=== PATIENT | female | born 1945 | race Caucasian/White ===

== ENCOUNTER → 2023-08-22 07:11 | Outpatient (REF) | payer MEDICARE, BC, SELFPAY | LOC: DHCBS MAIN 07:11 | PROVIDERS: ATTENDING PHYSICIAN Internal Medicine Cardiovascular Disease; FAMILY PHYSICIAN Family Medicine | DX: I48.0 Paroxysmal atrial fibrillation (principal); I34.0 Nonrheumatic mitral (valve) insufficiency | CPT/HCPCS: 93306 ==

== ENCOUNTER → 2023-08-22 08:39 | Outpatient (REF) | payer MEDICARE, SELFPAY ==
[2023-08-22 09:35] LABS: % Basophils 0.4 % (0-2); % Immature Granulocytes 0.4 % (0-0.5); % Lymphocytes 13.9 % (20.5-51.1); % Monocytes 6.1 % (1.7-9.3); % Neutrophils 78.2 % (42.2-75.2); Absolute Eosinophils 0.1 10^3/uL (0-0.7); Absolute Lymphocytes 1.2 10^3/uL (1.2-3.4); Absolute Monocytes 0.5 10^3/uL (0.1-0.6); Absolute Neutrophils 6.6 10^3/uL (1.4-6.5); Hemoglobin 14.8 g/dL (12.0-16.0); Mean Corp Hgb Conc. 34.4 g/dL (33.0-37.0); Mean Corpuscular Hgb 33.5 pg (27.0-31.0); Mean Corpuscular Volume 97.3 fL (81.0-99.0); Mean Platelet Volume 10.2 fL (7.4-10.4); Nucleated Red Blood Cells % 0 %; Platelet Count 239 10^3/uL (130-400); Red Blood Cell Count 4.42 10^6/uL (4.20-5.40); Red Cell Dist. Width 12.9 % (11.5-14.5); White Blood Cell Count 8.4 10^3/uL (4.8-10.8)
[2023-08-22 09:50] LABS: ALT (SGPT) 21 U/L (0-35); AST (SGOT) 23 U/L (14-36); Albumin 4.7 g/dl (3.5-5.0); Alkaline Phosphatase 94 U/L (38-126); Blood Urea Nitrogen 30 mg/dl (7-17); Calcium 9.9 mg/dl (8.4-10.2); Carbon Dioxide 28 mmol/L (22-30); Chloride 102 mmol/L (98-107); Glucose 102 mg/dl (70-99); HDL Cholesterol 80 mg/dl; LDL Cholesterol, Calculated 67 mg/dl; Potassium 4.1 mmol/L (3.5-5.1); Sodium 142 mmol/L (135-145); Total Bilirubin 0.8 mg/dl (0.2-1.3); Total Cholesterol 171 mg/dl (50-199); Total Protein 7.6 g/dl (6.3-8.2); Triglyceride 121 mg/dl (10-149); Very Low Density Lipoprotein 24 mg/dl (0-30); eGFR 46.05
[2023-08-22 10:48] LABS: TSH Reflex To Free T4 3.12 uIU/ml (0.47-4.68)
== END ==
LOC: REG 08:39
PROVIDERS: ATTENDING PHYSICIAN Internal Medicine Cardiovascular Disease; FAMILY PHYSICIAN Student in an Organized Health Care Education/Training Program
DX: I34.0 Nonrheumatic mitral (valve) insufficiency (principal); Z79.01 Long term (current) use of anticoagulants; I42.9 Cardiomyopathy, unspecified; I36.1 Nonrheumatic tricuspid (valve) insufficiency; E78.2 Mixed hyperlipidemia; E05.90 Thyrotoxicosis, unspecified without thyrotoxic crisis or storm
CPT/HCPCS: 36415; 80053; 80061; 82248; 84443; 85025; 93306

== ENCOUNTER 2023-09-06 09:19 | Day surgery (SDC) | payer MEDICARE, BC, SELFPAY ==
[2023-09-06 09:30] VITALS: BMI 30.2
--- NOTE | 2023-09-06 10:26 | ITS.CL.CARDI ---
[employer] Coordinator - Cardioversion
Cardioversion
Procedure Report:
Date of Procedure:
Procedure: Cardioversion
Indication: Symptomatic atrial fibrillation
Performing Physician: Agustin Simental MD
Technique: The patient was brought to the holding area. Signed informed consent was obtained. A time out was called and performed. The patient was anesthetized by the anesthesia service. Anticoagulation status was reviewed and appropriate. R2 pads
were placed anteriorly and posteriorly. A 200 J synchronized biphasic shock restored normal sinus rhythm without significant bradycardia. There were no complications.
Conclusion: Uncomplicated cardioversion from atrial fibrillation to sinus rhythm.
Recommendation: Routine post cardioversion care. Continue halfway anticoagulation.
== END 2023-09-06 11:05 | disposition home or self-care (01) ==
LOC: CATH 09:19
PROVIDERS: ATTENDING PHYSICIAN Internal Medicine Cardiovascular Disease; FAMILY PHYSICIAN Family Medicine; OTHER PHYSICIAN Internal Medicine Cardiovascular Disease
DX: I48.0 Paroxysmal atrial fibrillation (principal); I34.0 Nonrheumatic mitral (valve) insufficiency; R06.09 Other forms of dyspnea; I10 Essential (primary) hypertension; E03.9 Hypothyroidism, unspecified; I42.9 Cardiomyopathy, unspecified; G47.33 Obstructive sleep apnea (adult) (pediatric); Z79.01 Long term (current) use of anticoagulants; K21.9 Gastro-esophageal reflux disease without esophagitis
CPT/HCPCS: 92960; 93005

== ENCOUNTER 2023-09-06 11:12 | Emergency (ER) | payer MEDICARE, BC, SELFPAY ==
[2023-09-06 11:18] VITALS: BP 115/71
--- NOTE | 2023-09-06 12:50 | ED.GENMED ---
History of Present Illness
<Rubi Berman PA-C - Last Filed: 09/06/23 15:44>
General
Chief Complaint: Musculo-Skeletal Complaint
Source: patient and records
Exam Limitations: none
Time Seen by Provider: 09/06/23 12:48
Nursing documentation reviewed up to this point in time: agreed with
Travel History
Have you had any contact with someone who has COVID-19?: No
Do you have any symptoms of coronavirus? Fever > 100 degrees, chills, cough, shortness of breath, sore throat, loss of taste or smell, muscle aches, or headache?: No
History of Present Illness
History of Present Illness:
78 y/o female with a PMH of AAA, afib on eliquis, gout, hypothyroidism, presenting to the emergency department today with atraumatic left wrist pain for the past few weeks. Patient states that she has had atraumatic wrist pain for the past few
weeks its gotten progressively worse. Patient states that she has the pain constantly but it gets a lot worse with any range of motion of her wrist. Patient states that this feels similar to when she has had gout in the past. Patient describes
the pain as burning but denies any paresthesias, numbness or tingling. Patient states that the pain radiates from her wrist down to fdc across her forearm. Patient originally saw her primary care provider who was concerned patient had
osteoarthritis and ordered a x-ray but patient was unable to get this done. Patient denies chest pain, shortness of breath patient tried taking Tylenol for her symptoms which did not really help.
Past History
<Rubi Berman PA-C - Last Filed: 09/06/23 15:44>
Past History
ED Past Medical History: Arrthythmia (Paroxysmal atrial fibrillation, initial episode 2009), HTN, Hypothyroidism and Other (Non-Hodgkind lymphoma )
ED Past Surgical History: Appendectomy and
Social History
Tobacco: Non-smoker
Alcohol: None
Drug: None
Personal:
Living: with family
Employment: Retired
Family History
Family History: Hypertension
Review of Systems
<Rubi Berman PA-C - Last Filed: 09/06/23 15:44>
Review of Systems
All Other Systems: ROS reviewed and negative except as documented in HPI and ROS
Phy Exam
<Rubi Berman PA-C - Last Filed: 09/06/23 15:44>
Physical Exam
Physical Exam:
Vitals: Patient's vital signs are stable
General: Patient is well appearing and in no acute distress
Skin: There is some mild asymmetric swelling to the anterior surface of the left wrist
Course
<Rubi Berman PA-C - Last Filed: 09/06/23 15:44>
Orders/Labs/Results
Orders:
Orders
09/06/23 11:22
Wrist, Left 3 Views CR [CR Wrist - Left Min 3 Views] Urgent
Comment:
Reason For Exam: pain
09/06/23 13:17
Prednisone [Deltasone] 40 mg PO NOW STA
Vital Signs
Initial and Last Documented VS:
Initial Vital Signs
Temp Pulse Resp BP Pulse Ox
98.7 F 54 18 115/71 97
09/06/23 11:18 09/06/23 11:18 09/06/23 11:18 09/06/23 11:18 09/06/23 11:18
Last Documented Vital Signs
Temp Pulse Resp BP Pulse Ox
98.7 F 54 18 115/71 97
09/06/23 11:18 09/06/23 11:18 09/06/23 11:18 09/06/23 11:18 09/06/23 11:18
<Kumar Kern MD - Last Filed: 09/06/23 13:48>
Orders/Labs/Results
Orders:
Orders
09/06/23 11:22
Wrist, Left 3 Views CR [CR Wrist - Left Min 3 Views] Urgent
Comment:
Reason For Exam: pain
09/06/23 13:17
Prednisone [Deltasone] 40 mg PO NOW STA
Vital Signs
Initial and Last Documented VS:
Initial Vital Signs
Temp Pulse Resp BP Pulse Ox
98.7 F 54 18 115/71 97
09/06/23 11:18 09/06/23 11:18 09/06/23 11:18 09/06/23 11:18 09/06/23 11:18
Last Documented Vital Signs
Temp Pulse Resp BP Pulse Ox
98.7 F 54 18 115/71 97
09/06/23 11:18 09/06/23 11:18 09/06/23 11:18 09/06/23 11:18 09/06/23 11:18
<Rubi Berman PA-C - Last Filed: 09/06/23 15:44>
*Radiology
Radiology exam reviewed: preliminary read by ED provider (no acute fracture or dislocation)
*Pulse Oximetry
Patient hypoxic: no
*Critical Care Note
Total Time (30-74mins, 75-104mins- exclusive of procedures): Not Applicable
Data Reviewed
Review of Other/Old Records Reveals: Records (Reviewed previous records from ER physician augmentation on 01/08/2017)
Source: patient and records
<Rubi Berman PA-C - Last Filed: 09/06/23 15:44>
Patient Management
Escalation/DeEscalation of care consider admission/obs:
78 y/o female with a PMH of AAA, afib on eliquis, gout, hypothyroidism, presenting to the emergency department today with atraumatic left wrist pain for the past few weeks. Patient states that she has had atraumatic wrist pain for the past few
weeks its gotten progressively worse. On exam, patient has no obvious deformities of her left wrist. She has pain with passive range of motion of her wrist. Her radial and ulnar pulses are intact. Her x-ray demonstrates degenerative
osteoarthritis at the scaphotriquetral joint. This may explain her symptoms, however gout flare is also on the differential. We have given the patient a dose of prednisone here in emergency department. Patient will be discharged with a Medrol
Dosepak. Patient stable for discharge, return precautions given. Patient was given numbers for orthopedic follow-up.
ED Attending Note
<Rubi Berman PA-C - Last Filed: 09/06/23 15:44>
-
Portions of this chart may have been created with voice recognition software.� Occasional wrong word or��sound alike� substitutions may have occurred due to the inherent limitations of voice recognition software.
<Kumar Kern MD - Last Filed: 09/06/23 13:48>
ED Attending Note
Patient seen and examined by attending physician: Yes
I performed the substantive portion of visit, reviewed & personally made and approve the management plan that is documented in note by myself or AMARJIT.: Yes
ED Attending Note:
Nontraumatic left wrist pain for weeks. Patient had a cardioversion today and had some pain just proximal to the wrist. She was supposed to get an x-ray and decided that she would hear she would be evaluated and have the x-ray done. No other
complaints no chest pain shortness of breath syncope or other complaints. No fever or chills.
On exam there is mild swelling slightly proximal to the left wrist. Mild tenderness diffusely to the wrist. No warmth or erythema. Good distal pulses and color.
X-ray unremarkable...
Nonspecific inflammatory response. Highly doubt septic arthritis. Gout versus tendinitis. Splint low-dose prednisone and follow-up.
Discharge Plan
Departure
Patient Disposition: Home (Routine Discharge)
Date of Disposition: 09/06/23
Time of Disposition: 13:20
Patient with high blood pressure during this ER visit?: No
Condition: Good
Discharge Problem:
Left wrist pain
Instructions: Osteoarthritis (DC), Splint Care, Wrist Sprain ED, BLOOD PRESSURE
Prescriptions:
New
methylprednisolone [Medrol (Kayden)] 4 mg tablets,dose pack
See Rx Instructions .ROUTE .COMPLEX Qty: 21 0RF
Rx Instructions:
orally per package directions
No Action
losartan [Cozaar] 100 MG tablet
100 mg PO DAILY
amiodarone 200 MG tablet
200 mg PO BID
levothyroxine 137 mcg Tablet
137 mcg PO DAILY
felodipine [Plendil] 10 mg Tablet Extended Release 24 Hr
10 mg PO DAILY
metoprolol succinate [Toprol XL] 25 mg Tablet Extended Release 24 Hr
12.5 mg PO DAILY
furosemide 40 mg Tablet
40 mg PO Q OTHER DAY
Rx Instructions:
takes on mon, , thur, sat
Eliquis 5 MG tablet
5 mg PO BID
Referrals:
Fidencio Camacho MD [Active] - Call in 1-3 days for appt
Jonny Chavira DO [Family Provider] -
Heri Mcneill MD [Active] - Call in 1-3 days for appt
Activity Restrictions/Additional Instructions:
We have sent a Medrol dose pack to your pharmacy. Please follow package instructions for dosing.
We have given you referrals for orthopedic follow up. Please call to schedule an appointment.
Please return to the ER should you develop fevers or chills, acute worsening of your pain, chest pain, shortness of breath, dizziness, or lightheadedness.
Please follow up with your primary care provider.
Interventions
Interventions:
*Risk Screen - Suicide Last Done: 09/06/23 11:18
*General Assessment Last Done: 09/06/23 11:18
*Neglect/Abuse Screening Last Done: 09/06/23 11:18
ED- Fall Risk Assessment Last Done: 09/06/23 13:36
*ED COVID-19 Vaccine History Last Done: 09/06/23 13:36
*Nursing Disposition Last Done: 09/06/23 13:36
ED-Musculoskeletal Assessment Last Done: 09/06/23 13:36
Discharge Date and Time
Discharge Date/Time: 09/06/23 13:37
Print Language: GUAMANIAN
[2023-09-06] MEDS: DELTASONE 40 MG PO (13:33)
== END 2023-09-06 13:37 | disposition home or self-care (01) ==
LOC: EMR 11:12
PROVIDERS: EMERGENCY PHYSICIAN Emergency Medicine; FAMILY PHYSICIAN Family Medicine
DX: M25.532 Pain in left wrist (principal); M25.432 Effusion, left wrist; I71.40 Abdominal aortic aneurysm, without rupture, unspecified; E03.9 Hypothyroidism, unspecified; M19.032 Primary osteoarthritis, left wrist; I48.0 Paroxysmal atrial fibrillation; I10 Essential (primary) hypertension; C85.90 Non-Hodgkin lymphoma, unspecified, unspecified site; Z98.890 Other specified postprocedural states; Z79.01 Long term (current) use of anticoagulants
CPT/HCPCS: 99283; 73110

== ENCOUNTER → 2023-11-14 07:36 | Outpatient (REF) | payer MEDICARE, BC, SELFPAY ==
[2023-11-14 08:12] LABS: % Basophils 0.5 % (0-2); % Eosinophils 2.3 % (0-6); % Immature Granulocytes 0.2 % (0-0.5); % Lymphocytes 17.3 % (20.5-51.1); % Monocytes 9.3 % (1.7-9.3); % Neutrophils 70.4 % (42.2-75.2); Absolute Eosinophils 0.2 10^3/uL (0-0.7); Absolute Lymphocytes 1.4 10^3/uL (1.2-3.4); Absolute Monocytes 0.8 10^3/uL (0.1-0.6); Absolute Neutrophils 5.9 10^3/uL (1.4-6.5); Hematocrit 38.9 % (37.0-47.0); Hemoglobin 13.3 g/dL (12.0-16.0); Mean Corp Hgb Conc. 34.2 g/dL (33.0-37.0); Mean Corpuscular Hgb 33.6 pg (27.0-31.0); Mean Corpuscular Volume 98.2 fL (81.0-99.0); Mean Platelet Volume 10.1 fL (7.4-10.4); Nucleated Red Blood Cells % 0 %; Platelet Count 240 10^3/uL (130-400); Red Blood Cell Count 3.96 10^6/uL (4.20-5.40); Red Cell Dist. Width 13.5 % (11.5-14.5); White Blood Cell Count 8.3 10^3/uL (4.8-10.8)
[2023-11-14 08:26] LABS: INR 1.32; PT 16.5 Sec (11.4-14.6)
[2023-11-14 08:27] LABS: ALT (SGPT) 27 U/L (0-35); AST (SGOT) 31 U/L (14-36); Albumin 4.5 g/dl (3.5-5.0); Alkaline Phosphatase 110 U/L (38-126); Blood Urea Nitrogen 35 mg/dl (7-17); Calcium 9.6 mg/dl (8.4-10.2); Carbon Dioxide 29 mmol/L (22-30); Chloride 104 mmol/L (98-107); Glucose 108 mg/dl (70-99); Potassium 4.6 mmol/L (3.5-5.1); Sodium 144 mmol/L (135-145); Total Bilirubin 0.8 mg/dl (0.2-1.3); Total Protein 7.1 g/dl (6.3-8.2); eGFR 41.83
== END ==
LOC: SDSPAT 07:36
PROVIDERS: ATTENDING PHYSICIAN Internal Medicine Cardiovascular Disease; FAMILY PHYSICIAN Family Medicine
DX: Z01.818 Encounter for other preprocedural examination (principal); I48.0 Paroxysmal atrial fibrillation
CPT/HCPCS: 36415; 75572; 80053; 83735; 85025; 85610; 86850; 86900; 86901; 93005; Q9967

== ENCOUNTER 2023-11-19 08:37 | Day surgery (SDC) | payer MEDICARE, BC, SELFPAY ==
[2023-11-14 08:49] VITALS: BMI 32.3
--- NOTE | 2023-11-14 09:34 | HPS.HSE ---
Family Physician
-
Family Physician: INTERVIEWE UNKNOWN - PT NOT
Chief Complaint
-
Paroxysmal atrial fibrillation.
History of Present Illness
The patient is a 78 year old female presenting today for paroxysmal atrial fibrillation. The patient reports shortness of breath, most notably with exertion, and mild lightheadedness associated with this diagnosis. She previously underwent
4 cardioversions, the last occurring in August 2023, for her arrhythmia. She is on current pharmacological therapy with Amiodarone and Toprol XL. She has been compliant with Eliquis for oral anticoagulation. She notes that her symptoms associated
with her arrhythmia greatly interfere with her activities of daily living and are overall impacting her quality of life. She also hopes to discontinue Amiodarone in the near future if possible. She is interested in pursuing pulmonary vein isolation
for further arrhythmia management. She denies any current complaints today such as chest pain, shortness of breath at rest, palpitations, nausea, vomiting, diarrhea, lightheadedness, dizziness, cough, sore throat, or fever.
Medical History
Past Medical History
Past Medical History: Reports Other
Additional Past Medical History:
1. Paroxysmal atrial fibrillation, status post cardioversion x4; pharmacological therapy with Amiodarone and Toprol-XL and oral anticoagulation with Eliquis.
2. Hypertension.
3. Cardiomyopathy, preserved ejection fraction.
4. Moderate-severe mitral regurgitation.
5. Moderate-severe tricuspid regurgitation.
6. Ascending aortic aneurysm.
7. 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
8. Obstructive sleep apnea, compliant with CPAP.
9. Chronic kidney disease stage 3.
10. GERD.
11. Colon polyps.
12. C. difficile colitis 2009.
13. Hypothyroidism.
14. Hodgkin's lymphoma, 2001, status post chemotherapy and radiation.
15. Left parotid neoplasm, status post left parotidectomy and facial nerve dissection 2001.
16. Osteoarthritis.
17. Gout.
18. Shingles 2009.
19. Obesity, BMI 32.2.
Past Surgical History: Reports Other
Additional Past Surgical History:
1. Cardioversion x4.
2. Transesophageal echocardiogram.
3. x4.
4. Left bunionectomy.
5. Appendectomy.
6. Left parotidectomy and facial nerve dissection.
7. Mediastinal biopsy.
8. Colonoscopy x3.
Social History
Tobacco: Non-smoker
Alcohol: None
Personal:
Living: Other (She lives with her in a ranch style home with a basement. )
Family History
Family History: Not pertinent
Allergies / Home Medications
Allergy/Medication List:
Home medications:
1. Amiodarone 200 mg p.o. daily.
2. Eliquis 5 mg p.o. twice a day.
3. Felodipine 10 mg p.o. daily.
4. Furosemide 40 mg p.o. Mondays, Tuesdays, , and Saturdays.
5. Levothyroxine 137 mcg p.o. daily.
6. Losartan 100 mg p.o. daily.
7. Toprol XL 12.5 mg p.o. at bedtime.
Allergies: Augmentin. Omnicef. Ceftin. Biaxin.
Review of Systems
-
A 12 point ROS was completed and negative except as noted: Yes
Physical Exam
Vital Signs
Blood pressure 141/71. Heart rate 50. Respirations 18. Pulse ox 96% on room air.
Height 5 feet, 1 inch. Weight 77.4 kg. BMI 32.2.
Physical Exam
General: Well Developed, Well Nourished and No Apparent Distress
HEENT: NormoCephalic, Moist mucous membranes, Atraumatic and PERRLA
Respiratory: Clear
Cardiac: Bradycardia
GI: Soft, Non Tender, Non Distended and Other (Obese. )
Musculoskeletal: Normal Gait & Station and Other (Trace edema of bilateral lower extremities. )
Skin: Warm and Dry
Neuro: AO x 3 and Nonfocal/grossly intact
Laboratory Results
-
DIAGNOSTIC STUDIES as of 11/14/2023: White blood cell count 8.3. Hemoglobin 13.3. Platelet count 240,000. PT 16.5. INR 1.32. Sodium 144. Potassium 4.6. BUN 35. Creatinine 1.3. Glucose 108. Calcium 9.6. Magnesium 2.0. AST 31. ALT 27. Albumin 4.5.
Type and screen O positive.
EKG 11/14/2023: Sinus bradycardia. Left axis deviation. Left ventricular hypertrophy with QRS widening.
Chest CT 11/14/2023: Normal, conventional pulmonary venous anatomy on the left. Accessory right middle lobe pulmonary vein on the right. No evidence of left atrial filling defect/thrombus identified. There are innumerable collateral vessels noted in
the left lower neck, extending both anteriorly and superiorly in the upper chest. These reconstitute the superior vena cava. There is severe stenosis of the left subclavian vein at the junction with the superior vena cava. A string sign appearance
of contrast is seen.
Echocardiogram 08/22/2023: Normal left ventricular size and low normal systolic function. No regional wall motion abnormalities are seen. LV ejection fraction is 53% by Luciano's biplane method of discs and visually estimated approximately 55%.
There is moderately bilateral reduction. There is moderate to severe central mitral regurgitation. There is moderate to severe tricuspid regurgitation. Estimated pulmonary artery pressure is 29 mmHg.
Impression/Plan
-
IMPRESSION/PLAN:
1. Paroxysmal atrial fibrillation: The patient is in need of pulmonary vein isolation with Dr. Kumar Buck on 11/19/2023. The benefits and risks of the procedure have been explained to the patient. The patient understands these risks and
wishes to proceed. She will not be required to undergo a pre-procedural transesophageal echocardiogram as she has been compliant with her home oral anticoagulation. She will hold her Eliquis the night before and morning of her procedure as advised
by her surgeon. She will take no medications the morning of her procedure. The results of her most recent chest CT were discussed between radiology and Dr. Buck pre-operatively; fortunately, these findings should not delay her procedure.
[2023-11-19] VITALS (13 sets, daily range): BP systolic 144–177; BP diastolic 70–114; BMI 29.0
--- NOTE | 2023-11-19 09:51 | ITS.CL.ABL ---
Software Support Technician - Ablation
Ablation
Procedure Report:
ELECTROPHYSIOLOGIC STUDY AND POSSIBLE ABLATION
DATE: November 19, 2023
Primary Care Provider: Dr. Jonny Chavira
INDICATION:
Symptomatic Atrial Fibrillation despite antiarrhythmic drug therapy with amiodarone.
Persistent And associated with volume overload and clinical syndrome of heart failure with preserved ejection fraction.
Additionally she has valvular dysfunction which has included significant mitral as well as tricuspid regurgitation. Severity of mitral and tricuspid regurgitation has proven to be significantly related to her rhythm control as well as volume
control with improvement when she is in sinus rhythm and adequately diuresed.
HISTORY: See H and P.
Symptomatic AF, poorly controlled with attempted medical therapy
HAS-BLED: 2
Age
Abnormal Renal Function
CHADSVASc: 5
HFpEF
HTN
Age
F Gender
PRESENTING RHYTHM: [ ] SR, [ ] AF
HISTORY: See H and P.
Symptomatic AF, poorly controlled with attempted medical therapy.
ANTIARRHYTHMIC DRUG: amiodarone
ANTICOAGULATION: Apixaban
'TIME-OUT': called and confirmed.
SEDATION/ANESTHESIA: provided via the anesthesia department using general anesthesia.
PROCEDURE:
Ultrasound Guidance performed by ia was utilized for femoral venous Vascular Access b/l.
A decapolar CS catheter was placed within the CS for mapping and pacing.
The intracardiac ultrasound catheter was positioned in the RA for continuous intracardiac ultrasound imaging.
Heparin bolus and infusion to target ACT at 300 -350 seconds was administered. Transseptal puncture was performed. This entailed advancing a sheath with dilator into the superior vena cava and withdrawing both (monitoring intracardiac ultrasound,
fluoroscopy and tip pressure) with the tip oriented toward the atrial septum. The fossa ovalis was engaged (indicated by sudden displacement of the sheath tip as well as tenting of the fossa seen on intracardiac ultrasound).
AcTrueAbilityross transseptal system was used. Left atrial catheter position was confirmed by echocardiographic imaging, pressure monitoring (LA mean pressure [ ] mm Hg) and fluoroscopy. The sheath was advanced over the dilator and positioned in the left
atrium.
The multipolar mapping catheter was initially positioned through the transseptal sheath for high density mapping.
Geometry and voltage mapping was performed using the Anderson multipolar grid catheter. Navex was utilized for three-dimensional electroanatomical mapping.
A 3-D map was created using Navex . A 3-D reconstructed CT image was compared to the 3-D Navex map to assist in anatomic evaluation, mapping and ablation.
The [employer] Solos Pulse Select PFA catheter and system was used for cardiac ablation. Catheter positioning was guided and confirmed using both I.C.E. and fluoroscopy.
PV isolation approach was used to electrically isolate each PV ostia. Additional ablation lesion set consisted of applications to accomplish wide area circumferential ablation and additional ablation lesion set to isolate the posterior wall of the
left atrium given her persistent atrial fibrillation. Furthermore mapping of the posterior wall demonstrated significant fractionation along the posterior wall.
At the completion of energy delivery, remapping with the Anderson multipolar grid catheter found ostial isolation at the left sided as well as the right inferior pulmonary veins as well as posterior wall isolation. However high density
electroanatomical mapping demonstrated lack of ostial isolation at the right superior pulmonary vein along its anterior superior border. Differential atrial pacing confirmed PVP's. The pulse select PFA catheter was then repositioned in energy
delivery was performed to eliminate the PVP's and provide full ostial isolation at all the pulmonary veins, LSPV, LIPV, RSPV, RIPV.
I.C.E. :
Pre-Ablation Post-Ablation
LVEF: 55 % 55 %
WMA: none none
Pericardial effusion: none none
COMPLICATIONS:
None
SUMMARY:
- Mapping and ablation to isolate the PVs
- Additional AF ablation set after PVI.
- 3-D Electroanatomical Mapping
- Intracardiac Ultrasound
Post ablation, I discussed today's findings and results with the patient's , Tera.
RECOMMENDATIONS:
- Observe in monitored bed.
- Maintain oral anticoagulation.
- Discontinue amiodarone
- Office visit with me in 3 months.
Copy to: Dr. Jonny Chavira
[2023-11-19 11:03] LABS: ACT-LR - POC 271 Seconds (116-155)
[2023-11-19 11:25] LABS: ACT-LR - POC 342 Seconds (116-155)
[2023-11-19 11:50] LABS: ACT-LR - POC 334 Seconds (116-155)
[2023-11-19] MEDS: ANESTHETIC LOZENGE 1 LOZENGE PO ×2 (13:08→17:01)
[2023-11-19] MEDS: TYLENOL 650 MG PO (14:06)
--- NOTE | 2023-11-19 16:00 | W.PN.UPDATE ---
Update Note
Progress Note Update
Pt seen post PFA. Bilat groin sites without ht/bleeding, non tender. Urinating without difficulty. Post EKG SB 50s, 1st deg AVB w/PACs, no acute changes. Resume eliquis today. Will discontinue amiodarone at this time. Followup with Dr. Buck as
scheduled. Home today if groin sites/tele remain stable.
== END 2023-11-19 17:05 | disposition home or self-care (01) ==
LOC: CATH 08:37
PROVIDERS: ATTENDING PHYSICIAN Internal Medicine Cardiovascular Disease; FAMILY PHYSICIAN Family Medicine
DX: I48.19 Other persistent atrial fibrillation (principal); I48.0 Paroxysmal atrial fibrillation; I08.1 Rheumatic disorders of both mitral and tricuspid valves; G47.33 Obstructive sleep apnea (adult) (pediatric); I12.9 Hypertensive chronic kidney disease with stage 1 through stage 4 chronic kidney disease, or unspecified chronic kidney disease; N18.30 Chronic kidney disease, stage 3 unspecified; I42.9 Cardiomyopathy, unspecified; I71.21 Aneurysm of the ascending aorta, without rupture; K21.9 Gastro-esophageal reflux disease without esophagitis; Z87.19 Personal history of other diseases of the digestive system; E03.9 Hypothyroidism, unspecified; Z85.71 Personal history of Hodgkin lymphoma; M19.90 Unspecified osteoarthritis, unspecified site; M10.9 Gout, unspecified; E66.9 Obesity, unspecified; Z68.32 Body mass index [BMI] 32.0-32.9, adult; Z79.01 Long term (current) use of anticoagulants; Z79.899 Other long term (current) drug therapy; Z79.890 Hormone replacement therapy; Z88.0 Allergy status to penicillin; Z88.1 Allergy status to other antibiotic agents; Z90.49 Acquired absence of other specified parts of digestive tract
CPT/HCPCS: C1732; C1733; C1894 ×2; C1769; C1730; C1892; 76937; 85347; 86900; 86901; 93005; 93656; 93657

== ENCOUNTER → 2024-01-23 12:42 | Outpatient (REF) | payer MEDICARE, BC, SELFPAY | LOC: RAD 12:42 | PROVIDERS: ATTENDING PHYSICIAN Internal Medicine Cardiovascular Disease; FAMILY PHYSICIAN Family Medicine | DX: I34.0 Nonrheumatic mitral (valve) insufficiency (principal); R60.0 Localized edema | CPT/HCPCS: 93971 ==

== ENCOUNTER 2024-07-28 06:37 | Day surgery (SDC) | payer MEDICARE, BC, SELFPAY ==
--- NOTE | 2024-07-28 08:46 | ITS.CL.CARDI ---
[employer] Proofer - Cardioversion
Cardioversion
Procedure Report:
Date of Procedure: July 28 2024
Procedure: Cardioversion
Indication: Symptomatic atrial fibrillation
Performing Physician: Edward Ames DO [facility]
Technique: The patient was brought to the holding area. Signed informed consent was obtained. A time out was called and performed. The patient was anesthetized by the anesthesia service. Anticoagulation status was reviewed and appropriate. R2 pads
were placed anteriorly and posteriorly. A 200 J synchronized biphasic shock restored normal sinus rhythm without significant bradycardia. There were no complications.
Conclusion: Uncomplicated cardioversion from atrial fibrillation to sinus rhythm.
Recommendation: Routine post cardioversion care. Continue intermodal customer service anticoagulation.
== END 2024-07-28 09:00 | disposition home or self-care (01) ==
LOC: CATH 06:37
PROVIDERS: ATTENDING PHYSICIAN Nuclear Medicine Nuclear Cardiology; FAMILY PHYSICIAN Family Medicine; OTHER PHYSICIAN Internal Medicine Cardiovascular Disease
DX: I48.0 Paroxysmal atrial fibrillation (principal); I34.0 Nonrheumatic mitral (valve) insufficiency; I10 Essential (primary) hypertension; R06.09 Other forms of dyspnea; I42.9 Cardiomyopathy, unspecified; E03.9 Hypothyroidism, unspecified; G47.33 Obstructive sleep apnea (adult) (pediatric); K21.9 Gastro-esophageal reflux disease without esophagitis; Z79.01 Long term (current) use of anticoagulants
CPT/HCPCS: 92960; 93005

== ENCOUNTER 2024-08-28 05:50 | Day surgery (SDC) | payer MEDICARE, BC, SELFPAY ==
[2024-08-14 08:55] VITALS: BMI 29.6
[2024-08-28] VITALS (11 sets, daily range): BP systolic 116–148; BP diastolic 62–109; BMI 32.0
--- NOTE | 2024-08-28 07:37 | ITS.CL.ABL ---
Tree Expert - Ablation
Ablation
Procedure Report:
ELECTROPHYSIOLOGIC STUDY AND POSSIBLE ABLATION
DATE: 08/28/24
Primary Care Provider: Dr. Jonny Chavira
INDICATION:
Symptomatic Atrial Fibrillation despite antiarrhythmic drug therapy with amiodarone.
Persistent And associated with volume overload and clinical syndrome of heart failure with preserved ejection fraction.
Additionally she has valvular dysfunction which has included significant mitral as well as tricuspid regurgitation. Severity of mitral and tricuspid regurgitation has proven to be significantly related to her rhythm control as well as volume
control with improvement when she is in sinus rhythm and adequately diuresed.
She underwent PVI November 19, 2023 with Pulse Select PFA. Post ablation amiodarone was discontinued and has recurred with symptomatic atrial fibrillation.
She wishes to avoid resuming amiodarone. She presents now for repeat mapping and ablation for symptomatic recurrent atrial fibrillation
HISTORY: See H and P.
Symptomatic AF, poorly controlled with attempted medical therapy
HAS-BLED: 2
Age
Abnormal Renal Function
CHADSVASc: 5
HFpEF
HTN
Age
F Gender
PRESENTING RHYTHM: AF
HISTORY: See H and P.
Symptomatic AF, poorly controlled with attempted medical therapy.
ANTIARRHYTHMIC DRUG: amiodarone
ANTICOAGULATION: Apixaban
'TIME-OUT': called and confirmed.
SEDATION/ANESTHESIA: provided via the anesthesia department using general anesthesia.
PROCEDURE:
Ultrasound Guidance with real-time visualization of needle insertion and vessel patency performed by ny for femoral venous Vascular Access.
Under real-time US guidance, the needle was advanced with negative pressure into the vein. The needle was seen entering the vessel lumen with a good return of dark red flow, the syringe was removed, non-pulsatile, dark red blood low was noted and
the wire was passed without difficulty, then the needle was removed. US confirmed the wire was in the vein, not going into an artery,
Images were taken and saved for the patient's permanent record. Imaging findings typical femoral venous anatomy. Direct visualization of needle puncture into the femoral vein was observed and recorded.
A decapolar CS catheter was placed within the CS for mapping and pacing.
The intracardiac ultrasound catheter was positioned in the RA for continuous intracardiac ultrasound imaging.
Heparin bolus and infusion to target ACT at 300 -350 seconds was administered. Transseptal puncture was performed. This entailed advancing a sheath with dilator into the superior vena cava and withdrawing both (monitoring intracardiac ultrasound,
fluoroscopy and tip pressure) with the tip oriented toward the atrial septum. The fossa ovalis was engaged (indicated by sudden displacement of the sheath tip as well as tenting of the fossa seen on intracardiac ultrasound).
Transseptal puncture was performed. Left atrial catheter position was confirmed by echocardiographic imaging, pressure monitoring (LA mean pressure 6 mm Hg) and fluoroscopy. The sheath was advanced over the dilator and positioned in the left
atrium.
The Invacioa multipolar mapping/ablation Sphere-9 catheter was positioned through the transseptal sheath for high density mapping.
Geometry and voltage mapping was performed using the Invacioa mapping system for three-dimensional electroanatomical mapping.
Catheter positioning was guided and confirmed using both I.C.E. and fluoroscopy.
High density electroanatomical mapping demonstrates reconnection at the right superior pulmonary vein anteriorly, right PV bret, left inferior pulmonary vein towards its posterior inferior quadrant and electrical reconnection at the posterior wall
of the left atrium towards the dome midline.
Pulse electric field ablation was performed to reisolate the right superior pulmonary vein and left inferior pulmonary vein and additional applications were applied to the posterior wall of the left atrium to completely isolate the posterior wall.
Once ablation was completed remapping as well as pacing demonstrated entrance and exit block from each of the pulmonary veins (LSPV, LIPV, RSPV, RIPV) and from the posterior wall of the left atrium.
Programmed electrical stimulation which included burst atrial pacing down to 250 ms as well as delivery of atrial decremental extrastimuli down to atrial ERP failed to induce any arrhythmias.
I.C.E. :
Pre-Ablation Post-Ablation
LVEF: 55 % 55 %
WMA: none none
Pericardial effusion: Trivial�small posterior Trivial�small posterior
COMPLICATIONS:
None
SUMMARY:
- Mapping and ablation to re-isolate the PVs
- Additional AF ablation set after PVI to reisolate the posterior wall of the left atrium.
- 3-D Electroanatomical Mapping
- Intracardiac Ultrasound
- Vascular ultrasound
Post ablation, I discussed today's findings and results with the patient's , Tera.
RECOMMENDATIONS:
- Observe in monitored bed.
- Maintain oral anticoagulation.
- Office visit with me in 4 months.
Copy to: Dr. Jonny Chavira
[2024-08-28 08:31] LABS: ACT-LR - POC 316 Seconds (116-155)
[2024-08-28 08:48] LABS: ACT-LR - POC 366 Seconds (116-155)
[2024-08-28] MEDS: ANESTHETIC LOZENGE 1 LOZENGE PO (09:43)
[2024-08-28] MEDS: COZAAR 100 MG PO (11:40)
[2024-08-28] MEDS: TYLENOL 650 MG PO (12:08)
--- NOTE | 2024-08-28 14:00 | W.PN.UPDATE ---
Update Note
Progress Note Update
79 yo WF s/p PVI (same day). She denies cp, sob, cecilia diet, voiding, EKG SR with LAFB, R fem site c/d/i no HT, soft. She will resume Eliquis tonight and continue metoprolol. Activity restrictions reviewed. She will f/u in 2 mo at [facility]. She is for d/c
home after 2pm.
== END 2024-08-28 13:56 | disposition home or self-care (01) ==
LOC: CATH 05:50
PROVIDERS: ATTENDING PHYSICIAN Internal Medicine Cardiovascular Disease; FAMILY PHYSICIAN Family Medicine
DX: I48.0 Paroxysmal atrial fibrillation (principal); I10 Essential (primary) hypertension; I13.0 Hypertensive heart and chronic kidney disease with heart failure and stage 1 through stage 4 chronic kidney disease, or unspecified chronic kidney disease; I08.1 Rheumatic disorders of both mitral and tricuspid valves; N18.30 Chronic kidney disease, stage 3 unspecified; E03.9 Hypothyroidism, unspecified; R91.1 Solitary pulmonary nodule; G47.33 Obstructive sleep apnea (adult) (pediatric); C81.90 Hodgkin lymphoma, unspecified, unspecified site; Z92.21 Personal history of antineoplastic chemotherapy; Z92.3 Personal history of irradiation; B96.89 Other specified bacterial agents as the cause of diseases classified elsewhere; Z79.899 Other long term (current) drug therapy; Z79.890 Hormone replacement therapy; Z79.01 Long term (current) use of anticoagulants; Z90.49 Acquired absence of other specified parts of digestive tract; Z88.0 Allergy status to penicillin; Z88.1 Allergy status to other antibiotic agents; I50.30 Unspecified diastolic (congestive) heart failure; I49.1 Atrial premature depolarization; I44.4 Left anterior fascicular block
CPT/HCPCS: C1894; C1730; C1766; C1759; C1733; C1892; 85347; 93005; 93656; 93657

== ENCOUNTER 2024-11-03 09:07 | Day surgery (SDC) | payer MEDICARE, BC, SELFPAY ==
--- NOTE | 2024-11-03 18:53 | ITS.CL.CARDI ---
Candy Maker - Cardioversion
Cardioversion
Procedure Report:
Date of Procedure: 11/03/24
Procedure: Cardioversion
Indication: Symptomatic atrial fibrillation
Performing Physician: Jaclyn Zamorano DO [facility]
Anticoagulation: Eliquis
Technique: The patient was brought to the holding area. Signed informed consent was obtained. A time out was called and performed. The patient was anesthetized by the anesthesia service. Anticoagulation status was reviewed and appropriate. R2 pads
were placed anteriorly and posteriorly. A 200 J synchronized biphasic shock restored normal sinus rhythm without significant bradycardia. There were no complications.
Conclusion: Uncomplicated cardioversion from atrial fibrillation to sinus rhythm with frequent PACs and brief episodes of atrial tachycardia..
Recommendation: Routine post cardioversion care. Continue fci anticoagulation. Will arrange outpatient cardiac follow-up with Dr. Hardeep Buck
== END 2024-11-03 11:31 | disposition home or self-care (01) ==
LOC: CATH 09:07
PROVIDERS: ATTENDING PHYSICIAN Internal Medicine Cardiovascular Disease; FAMILY PHYSICIAN Family Medicine; OTHER PHYSICIAN Internal Medicine Cardiovascular Disease
DX: I48.0 Paroxysmal atrial fibrillation (principal); I34.0 Nonrheumatic mitral (valve) insufficiency; I10 Essential (primary) hypertension; E03.9 Hypothyroidism, unspecified; R06.09 Other forms of dyspnea; I42.9 Cardiomyopathy, unspecified; K21.9 Gastro-esophageal reflux disease without esophagitis; G47.33 Obstructive sleep apnea (adult) (pediatric); Z85.71 Personal history of Hodgkin lymphoma; Z79.01 Long term (current) use of anticoagulants
CPT/HCPCS: 92960; 93005

== ENCOUNTER → 2025-01-16 08:34 | Outpatient (REF) | payer MEDICARE, BC, SELFPAY | LOC: RCS 08:34 | PROVIDERS: ATTENDING PHYSICIAN Physician Assistant Medical; FAMILY PHYSICIAN Family Medicine; REFERRING PHYSICIAN Internal Medicine Cardiovascular Disease | DX: I34.0 Nonrheumatic mitral (valve) insufficiency (principal); I77.810 Thoracic aortic ectasia | CPT/HCPCS: 93306 ==

== ENCOUNTER 2025-03-09 09:30 | Inpatient (IN) | payer MEDICARE, BC, SELFPAY ==
[2025-03-09 09:50] VITALS: BP 142/90
[2025-03-09 09:56] VITALS: BMI 26.6
--- NOTE | 2025-03-09 10:06 | CON.CAR ---
Addendum entered and electronically signed by Edward Ames DO 03/09/25 15:35:
History and Physical
I saw and examined the patient.
The Laundry Marker Supervisor's note was reviewed and I agree with the note.
Comment:
Plan:
Direct admit for Tikosyn load 250 mcg BID based on renal function
QTc stable.
Consider cardioversion prior to d/c if fails to convert
Outpatient dose of Toprol-XL 12.5 mg BID will be continued
Patient will continue with her usual dose of Eliquis 5 mg BID
Reviewed with nursing and with .
Original Note:
Consultation
Consultation Request
Date/Time Consultation Requested: 03/09/2025
Date/Time Consultation Performed: 03/09/2025
Performing Provider: Dr. Ames
Reason for Consultation: Direct admission for Tikosyn loading, H&P
Medical History
-
History of Present Illness:
Patient was seen in the office on 02/06/2025 and referred for Tikosyn load for persistent A-fib. Patient has a history of paroxysmal to persistent A-fib with previous PVI in 2023 and most recently on 08/28/2024. Leading up to her PVI in 2023 patient
was taking amiodarone and this was stopped following ablation. Patient recurred with A-fib prompting repeat ablation earlier this year. Patient recurred with A-fib and this was reviewed at her 02/06/2025 office visit with the option of Tikosyn
loading. Patient was agreeable. Patient denies any missed doses of Eliquis. No chest pain or SOB.
PMH:
Persistent A-fib
s/p PVI 11/19/2023
Previous amiodarone therapy stopped following successful ablation 11/19/2023
s/p Affera multipolar mapping/PVI ablation 08/28/24
Chronic Eliquis OAC
Hodgkin's lymphoma
HILDA on CPAP
Hypothyroidism
Past Medical History
Past Medical History: Other (In HPI)
Past Surgical History: Appendectomy, Cardiac (Ablation 10/2023, ablation for 325) and
Social History
Tobacco: Non-Smoker
Alcohol: None
Drug: None
Personal:
Living: With Family
Family History
Family History: Cancer and Other (Parkinson's disease, dementia)
Allergies / Home Medications
Allergy/AdvReac Type Severity Reaction Status Date / Time
amoxicillin (From Augmentin) Allergy N/V/D Verified 08/28/24 06:11
cefdinir (From Omnicef) Allergy N/V/D Verified 08/28/24 06:11
cefuroxime (From Ceftin) Allergy N/V/D Verified 08/28/24 06:11
clarithromycin (From Biaxin) Allergy N/V/D Verified 08/28/24 06:11
clavulanic acid (From Allergy N/V/D Verified 08/28/24 06:11
Augmentin)
�Medication �Instructions �Recorded �Confirmed �Type
losartan 100 mg tablet (Cozaar) 100 mg PO DAILY htn 03/04/15 11/03/24 History
felodipine 10 mg tablet,extended 10 mg PO DAILY htn 01/10/22 11/03/24 History
release 24 hr
levothyroxine 137 mcg tablet 137 mcg PO DAILY Thyroid 01/10/22 11/03/24 History
metoprolol succinate 25 mg 12.5 mg PO BID bp 01/10/22 11/03/24 History
tablet,extended release 24 hr
(Toprol XL)
apixaban 5 mg tablet (Eliquis) 5 mg PO BID blood thinner 09/06/23 11/03/24 History
furosemide 40 mg tablet 40 mg PO .4TIMESWEEK water pill 09/06/23 11/03/24 History
calcium carb-ergocalciferol (vit 1 tab PO DAILY 11/03/24 11/03/24 History
D2) 600 mg calcium-200 unit tablet
Review of Systems
-
History Source: Patient and Family ( sitting bedside)
All other systems: Negative unless noted
Physical Exam
Vital Signs
Pulse BP
87 142/90
03/09/25 09:50 03/09/25 09:50
GEN: NAD, AO x 3
HEENT: EOMI, MMM
LUNGS: RA CTA B/L LE
CV: A-fib on telemetry. Irreg, S1/S2, /6 syst LSB
ABD: ND
EXT: No edema B/L LE
NEURO: Gross non-focal
SKIN: No rash
Lab Results
Labs ordered and reviewed by me 03/09/2025:
CBC: Hgb 15.1, hematocrit 44, WBC 9.5, platelet count 239,000
CMP: Sodium 141, potassium 4.3, BUN 36, creatinine 1.0, blood sugar 100, magnesium 2.0, AST 25, ALT 21
Impression / Plan
-
PCP: Dr. Harriet Haro
Cardiology: Dr. Kumar Buck
Impression:
Direct admission for Tikosyn load 03/09/2025
Persistent A-fib
s/p PVI 11/19/2023
Previous amiodarone therapy stopped following successful ablation 11/19/2023
s/p Affera multipolar mapping/PVI ablation 08/28/24
Chronic Eliquis OAC
Hodgkin's lymphoma
HILDA on CPAP
Hypothyroidism
Echo 12/27/2024: Normal LV size and function, EF 55 to 60%, moderately dilated LA/RA with moderate MR and trivial pericardial effusion
Plan:
-Patient was seen in the office on 02/06/2025 and referred for Tikosyn load for persistent A-fib. Patient has a history of paroxysmal to persistent A-fib with previous PVI in 2023 and most recently on 08/28/2024. Leading up to her PVI in 2023 patient
was taking amiodarone and this was stopped following ablation. Patient recurred with A-fib prompting repeat ablation earlier this year. Patient recurred with A-fib and this was reviewed at her 02/06/2025 office visit with the option of Tikosyn
loading. Patient was agreeable. Patient denies any missed doses of Eliquis. No chest pain or SOB.
-ECG reviewed by me is SR with QTc 433 ms
-CrCl calculated by me is 49 and patient is recommended Tikosyn 250 mcg every 12 hours, doses ordered by me
-Will follow-up on ECG 2 hours after each dose of Tikosyn. Reviewed with patient that if there is QT prolongation we can lower the dose to 125 mcg every 12 hours.
-Outpatient dose of Toprol-XL 12.5 mg BID will be continued
-Patient will continue with her usual dose of Eliquis 5 mg BBID (age 79, Cre 1.0, wt 70.2 kg) and there have been no missed doses of Eliquis
-CV on Sunday morning if patient fails to convert with loading doses
-Patient takes Lasix 20 mg about 4 times a week for volume management, she took a dose yesterday and we will give another dose tomorrow and follow-up on labs and ECG. Orders adjusted by me.
[2025-03-09 11:00] VITALS: BMI 26.6
[2025-03-09] MEDS: COZAAR PO (11:18)
[2025-03-09] MEDS: TOPROL XL PO (11:18)
[2025-03-09] MEDS: NORVASC PO (11:19)
--- NOTE | 2025-03-09 11:19 | PTCARENOTE ---
Received the patient as a direct admit. The patient is aaox3, vital signs are stable. She has no complains of pain, discomfort, or sob. Afib is noted on the monitor. Tikosyn loading expectations were explained top the patient. I oriented her to her
room. Her scall ivan is with reach.
ECG done. Base Qtc is 433.
[2025-03-09 11:23] LABS: Hematocrit 44.0 % (37.0-47.0); Hemoglobin 15.1 g/dL (12.0-16.0); Mean Corp Hgb Conc. 34.3 g/dL (33.0-37.0); Mean Corpuscular Volume 95.4 fL (81.0-99.0); Platelet Count 239 10^3/uL (130-400); Red Cell Dist. Width 12.5 % (11.5-14.5)
[2025-03-09 11:33] LABS: ALT (SGPT) 21 U/L (0-35); AST (SGOT) 25 U/L (14-36); Albumin 4.7 g/dl (3.5-5.0); Alkaline Phosphatase 100 U/L (38-126); Blood Urea Nitrogen 36 mg/dl (7-17); Calcium 9.8 mg/dl (8.4-10.2); Carbon Dioxide 25 mmol/L (22-30); Chloride 105 mmol/L (98-107); Estimated Creatinine Clearance 39 ml/min; Glucose 100 mg/dl (70-99); Magnesium 2.0 mg/dl (1.6-2.3); Potassium 4.3 mmol/L (3.5-5.1); Sodium 141 mmol/L (135-145); Total Protein 7.6 g/dl (6.3-8.2); eGFR 56.95
[2025-03-09] MEDS: ELIQUIS PO (12:25)
[2025-03-09] MEDS: TIKOSYN 250 MCG PO ×2 (12:25→22:57)
--- NOTE | 2025-03-09 13:13 | W.CARD.TIKOS ---
Initiate Tikosyn
-
I verify that the patient has not taken any verapamil (Isoptin/Calan), ketoconazole (Nizoral), cimetidine (Tagamet), trimethoprim (Trimpex), trimethoprim/sulfamethoxazole (Bactrim), megesterol (Megace), prochlorperazine (Compazine),
hydrochlorothiazide (HCTZ), dolutegravir (Tivicay) or any Class I or Class III anti-arrhythmic within the last three days
AND
I verify that the patient has not taken amiodarone within the last THREE months, or that the patient's amiodarone plasma concentration is <0.3 mcg/mL.
Creatinine 1.0 mg/dL (0.6-1.0) 03/09/25 10:57
Estimated Creat Clear 39 ml/min 03/09/25 10:57
CrCl 49 calculated by me
Does patient have a Ventricular Conduction Abnormality: No
I have assessed the baseline QTc interval (using QT for heart rate less than 60 bpm) and deemed the patient is appropriate for Dofetilide therapy. I understand that Tikosyn is contraindicated if the QTc is >440msec (500msec in patients with
ventricular conduction abnormalities).
Baseline QTc (in msec): 433
Ordering Physician: Kumar Buck
[2025-03-09 13:21] VITALS: BP 118/84
--- NOTE | 2025-03-09 13:38 | CM ---
Reviewed chart. Met with Mrs. Lewis to review discharge plans. She states prior to admission she resides with her spouse in a one story home with a basement laundry room. She states she has three steps to enter the home. She states prior she
was independent with ambulation and adls. She states she does not have any DME in the home. She states she has a prescription plan with [facility] and uses [facility]. Telephone call to [facility] ([phone]) to check on co-pay for Dofetilide
250 mcg q 12. The thirty day supply is $7.00 a month and the ninety day supply is $5.00. Telephone call to [facility] to see if they have Dofetilide 250 mcg in stock. [facility] states they do not have it in stock. They would have to order.
Will need a three day a script to [facility] for a three day supply to go home with her. Medical work-up in progress. The discharge plan is to return home with her spouse when medically stable.
--- NOTE | 2025-03-09 14:31 | PTCARENOTE ---
At 1420 the patient convert to sinus franko with a bbb. ECG confirmed conversion. Ainsley Rivas notified.
1st dose Tikosyn Qtc 413
[2025-03-09 15:56] VITALS: BP 132/86
[2025-03-09 19:35] VITALS: BP 130/80
[2025-03-09 20:08] VITALS: BP 128/95
[2025-03-09] MEDS: ELIQUIS 5 MG PO (20:08)
[2025-03-09] MEDS: TOPROL XL 12.5 MG PO (20:08)
[2025-03-09 22:59] VITALS: BP 137/96
[2025-03-10] VITALS (8 sets, daily range): BP systolic 120–149; BP diastolic 68–104; BMI 26.8
[2025-03-10] MEDS: SYNTHROID 137 MCG PO (04:17)
[2025-03-10 04:55] LABS: Blood Urea Nitrogen 31 mg/dl (7-17); Calcium 9.0 mg/dl (8.4-10.2); Carbon Dioxide 29 mmol/L (22-30); Chloride 106 mmol/L (98-107); Estimated Creatinine Clearance 43 ml/min; Glucose 90 mg/dl (70-99); Potassium 4.0 mmol/L (3.5-5.1); Sodium 140 mmol/L (135-145); eGFR > 60.00
[2025-03-10 05:14] LABS: Hematocrit 35.5 % (37.0-47.0); Hemoglobin 12.0 g/dL (12.0-16.0); Mean Corp Hgb Conc. 33.8 g/dL (33.0-37.0); Mean Corpuscular Volume 97.0 fL (81.0-99.0); Platelet Count 210 10^3/uL (130-400); Red Cell Dist. Width 12.7 % (11.5-14.5)
[2025-03-10 05:55] LABS: Hematocrit 35.9 % (37.0-47.0); Hemoglobin 12.4 g/dL (12.0-16.0); Mean Corp Hgb Conc. 34.5 g/dL (33.0-37.0); Mean Corpuscular Volume 97.8 fL (81.0-99.0); Platelet Count 200 10^3/uL (130-400); Red Cell Dist. Width 12.7 % (11.5-14.5)
--- NOTE | 2025-03-10 07:15 | PTCARENOTE ---
Assumed care on pt at 1900, aaox3, denies pain or SOB. SB/SR on the tele monitor, HR 44-60's. Cpap on during night. Independent with care and toileting, steady gait. Hgb dropped from 15.1 to 12.0 with morning labs, cbc redrawn and hgb 12.4. No signs
of active bleeding noted, urine clear yellow. bp stable. Tikosyn dose #2 given and EKG post 2hr obtained, QTc 420. Call ivan within reach, POC ongoing.
--- NOTE | 2025-03-10 07:34 | W.PN.CARDCBS ---
Addendum entered and electronically signed by Juan Latif MD 03/10/25 10:20:
I saw and examined the patient.
The Pitch Gatherer's note was reviewed and I agree with the note.
Comment: Briefly, 79-year-old woman past medical history of persistent atrial fibrillation status post PVI x 2 who presents for initiation of Tikosyn
Patient received initial dose of Tikosyn yesterday and subsequently converted from AFib to sinus rhythm
Maintaining sinus rhythm on my review of telemetry
QTc has remained stable -continue with serial ECGs
Follow and replete electrolytes as needed
Tentatively for discharge following her fifth dose on 03/11/2025
Rest per Sondra Ayala
Original Note:
Today's Communication / Plan
-
Continue Tikosyn loading with QTc monitoring
Impression / Plan
-
PCP: Dr. Harriet Haro
Cardiology: Dr. Kumar Buck
Impression:
Direct admission for Tikosyn load 03/09/2025
Persistent A-fib
s/p PVI 11/19/2023
Previous amiodarone therapy stopped following successful ablation 11/19/2023
s/p Affera multipolar mapping/PVI ablation 08/28/24
Chronic Eliquis OAC
Hodgkin's lymphoma
HILDA on CPAP
Hypothyroidism
Echo 12/27/2024: Normal LV size and function, EF 55 to 60%, moderately dilated LA/RA with moderate MR and trivial pericardial effusion
Plan:
-Patient was seen in the office on 02/06/2025 and referred for Tikosyn load for persistent A-fib. Patient has a history of paroxysmal to persistent A-fib with previous PVI in 2023 and most recently on 08/28/2024. Leading up to her PVI in 2023 patient
was taking amiodarone and this was stopped following ablation. Patient recurred with A-fib prompting repeat ablation earlier this year. Patient recurred with A-fib and this was reviewed at her 02/06/2025 office visit with the option of Tikosyn
loading. Patient was agreeable. Patient denies any missed doses of Eliquis. No chest pain or SOB.
-ECG prior to Tikosyn initiation: A-fib with QTc 433 ms
-CrCl calculated 49 and patient started Tikosyn 250 mcg every 12 hours
-Patient has received 2 doses of Tikosyn as of the time of this note, 03/10/25 0900
-Telemetry personally reviewed: Normal sinus rhythm/sinus bradycardia 44 to 69 bpm
- Continue follow-up on ECG 2 hours after each dose of Tikosyn. Reviewed with patient that if there is QT prolongation we can lower the dose to 125 mcg every 12 hours.
-Outpatient dose of Toprol-XL 12.5 mg BID will be continued
-Patient will continue with her usual dose of Eliquis 5 mg BID (age 79, Cre 1.0, wt 70.2 kg) and there have been no missed doses of Eliquis
-Patient takes Lasix 20 mg about 4 times a week for volume management, she took a dose 03/08 and scheduled 4 doses 03/10 and 03/12.
- Continue outpatient antihypertensives: Losartan 100 mg daily, amlodipine 10 mg daily, Toprol 12.5 mg twice daily
Progress Note - Aircraft Maintenance Supervisor
Subjective
Date of Service: March 10, 2025
Converted to sinus rhythm
Feels well, no shortness of breath, chest pain, lightheaded
Objective
Labs:
03/10/25 05:42
03/10/25 04:16
Labs
Hgb 12.4 g/dL (12.0-16.0) 03/10/25 05:42
Hct 35.9 % (37.0-47.0) L 03/10/25 05:42
Plt Count 200 10^3/uL (130-400) 03/10/25 05:42
Sodium 140 mmol/L (135-145) 03/10/25 04:16
Potassium 4.0 mmol/L (3.5-5.1) 03/10/25 04:16
BUN 31 mg/dl (7-17) H 03/10/25 04:16
Creatinine 0.9 mg/dL (0.6-1.0) 03/10/25 04:16
Glucose 90 mg/dl (70-99) 03/10/25 04:16
Vital Signs and I&O:
Vital Signs
Temp Pulse Resp BP Pulse Ox
97.7 F 66 18 149/94 98
03/10/25 06:59 03/10/25 07:02 03/10/25 06:59 03/10/25 07:02 03/10/25 06:59
Vital Signs
Temp Pulse Resp BP Pulse Ox
97.7 F 66 18 149/94 98
03/10/25 06:59 03/10/25 07:02 03/10/25 06:59 03/10/25 07:02 03/10/25 06:59
Intake & Output
03/08/25 03/09/25 03/10/25 03/11/25
06:59 06:59 06:59 06:59
Intake Total 240 / 240
Balance 240 / 240
Physical Exam
Physical Exam
GEN: No distress, awake, Ox3
HEENT: supple, anicteric, mmm
LUNGS: CTA, no wheezes/rales
CV: Reg, S1/S2, no murmur
ABD: soft, BS+, NT/ND
EXT: Trace edema
NEURO: Gross non-focal
SKIN: No rash
--- NOTE | 2025-03-10 08:13 | PTCARENOTE ---
Assumed care of pt from prev nsg shift; Pt AAOx3 w/no c/o CP or SOB. Pt's VSS w/HR in the 60's & BP 149/94 this AM. Pt is SR w/BBB on telemetry monitoring. Discussed plan of care w/pt & pt w/no addtl needs at this time. Plan of care ongoing.
[2025-03-10] MEDS: ELIQUIS 5 MG PO ×2 (08:46→20:03)
[2025-03-10] MEDS: LASIX 20 MG PO (08:46)
[2025-03-10] MEDS: TOPROL XL 12.5 MG PO ×2 (08:47→20:03)
[2025-03-10] MEDS: NORVASC 10 MG PO (08:47)
[2025-03-10] MEDS: COZAAR 100 MG PO (08:49)
[2025-03-10] MEDS: TIKOSYN 250 MCG PO ×2 (10:26→21:00)
--- NOTE | 2025-03-10 11:30 | CM ---
Reviewed chart. Met with Mrs. Lewis to review discharge plans. She states she is feeling better. We reviewed her co-pay of $5.00 for a ninety day supply. She is agreeable to the co-pay. Prior to admission she resides with her spouse in a one
story home with a basement laundry room. She has three steps to enter the home. Prior she was independent with ambulation and adls. She does not have any DME in the home. She has a prescription plan with [facility] and uses [facility].
Telephone call to [facility] ([phone]) to check on co-pay for Dofetilide 250 mcg q 12. The thirty day supply is $7.00 a month and the ninety day supply is $5.00. Telephone call to [facility] to see if they have Dofetilide 250 mcg in stock. [facility] states they do not have it in stock. They would have to order. Will need a three day a script to [facility] for a three day supply to go home with her. Medical work-up in progress. The discharge plan is to return home with her spouse
when medically stable.
[2025-03-11] VITALS (7 sets, daily range): BP systolic 107–138; BP diastolic 66–91; BMI 26.9
[2025-03-11 03:10] LABS: Blood Urea Nitrogen 27 mg/dl (7-17); Calcium 9.1 mg/dl (8.4-10.2); Carbon Dioxide 28 mmol/L (22-30); Chloride 107 mmol/L (98-107); Estimated Creatinine Clearance 43 ml/min; Glucose 97 mg/dl (70-99); Potassium 3.8 mmol/L (3.5-5.1); Sodium 141 mmol/L (135-145); eGFR > 60.00
--- NOTE | 2025-03-11 05:37 | PTCARENOTE ---
Pt NSR to SB with HR as low as 41 BPM when asleep. VSS Pt denies pain or SOB. Independent in the room
[2025-03-11] MEDS: SYNTHROID 137 MCG PO (05:59)
[2025-03-11] MEDS: ELIQUIS 5 MG PO ×2 (08:43→20:07)
[2025-03-11] MEDS: TIKOSYN 250 MCG PO (08:43)
[2025-03-11] MEDS: COZAAR 100 MG PO (08:43)
[2025-03-11] MEDS: TOPROL XL 12.5 MG PO ×2 (08:44→20:08)
[2025-03-11] MEDS: NORVASC 10 MG PO (08:44)
--- NOTE | 2025-03-11 08:54 | PTCARENOTE ---
Assumed care of pt from prev nsg shift; Pt AAOx3 w/no c/o CP or SOB. Pt's VSS w/HR in the 50's & BP 119/81 this AM. Pt is SB w/BBB on telemetry monitoring. Discussed plan of care w/pt. Pt requesting high-dose flu vaccine on D/C. This RN will advise
PA. Plan of care ongoing.
--- NOTE | 2025-03-11 12:23 | W.PN.CARDCBS ---
Addendum entered and electronically signed by Manuelito Simental MD 03/11/25 12:41:
I saw and examined the patient.
The Manager Agricultural's note was reviewed and I agree with the note.
Comment:
GEN: No distress, awake, Ox3
HEENT: supple, anicteric, mmm
LUNGS: CTA, no wheezes/rales
CV: Reg, S1/S2, 1/6 syst LSB, no gallop
ABD: soft, BS+, NT/ND
EXT: No edema
NEURO: Gross non-focal
SKIN: No rash
PLan:
Remains in sinus rhythm. Continue Tikosyn 250 mcg every 12.
Continue Toprol and Eliquis. Continue losartan
Okay for discharge
Original Note:
Today's Communication / Plan
-
Discharge to home today
Impression / Plan
-
PCP: Dr. Harriet Haro
Cardiology: Dr. Kumar Buck
Impression:
Direct admission for Tikosyn load 03/09/2025
Persistent A-fib
s/p PVI 11/19/2023
Previous amiodarone therapy stopped following successful ablation 11/19/2023
s/p Affera multipolar mapping/PVI ablation 08/28/24
Chronic Eliquis OAC
Hodgkin's lymphoma
HILDA on CPAP
Hypothyroidism
Echo 12/27/2024: Normal LV size and function, EF 55 to 60%, moderately dilated LA/RA with moderate MR and trivial pericardial effusion
Plan:
-Patient was seen in the office on 02/06/2025 and referred for Tikosyn load for persistent A-fib. Patient has a history of paroxysmal to persistent A-fib with previous PVI in 2023 and most recently on 08/28/2024. Leading up to her PVI in 2023 patient
was taking amiodarone and this was stopped following ablation. Patient recurred with A-fib prompting repeat ablation earlier this year. Patient recurred with A-fib and this was reviewed at her 02/06/2025 office visit with the option of Tikosyn
loading. Patient was agreeable. Patient denies any missed doses of Eliquis. No chest pain or SOB.
-QTc 522 ms on ECG 2 hours after 5th dose of Tikosyn on Sunday
-Patient spontaneously converted to SR following 1st dose of Tikosyn on Sunday
-CrCl calculated 49 so dose of Tikosyn is 250 mcg every 12 hours
-Outpatient dose of Toprol-XL 12.5 mg BID has been continued
-Patient will continue with her usual dose of Eliquis 5 mg BID (age 79, Cre 1.0, wt 70.2 kg) and there have been no missed doses of Eliquis
-Patient takes Lasix 20 mg about 4 times a week for volume management, she took a dose 03/08/25 and received another dose on 03/10/2025. Renal function, electrolytes and ECG stable with Tikosyn loading and Lasix dosing as an inpatient, so Lasix
will be continued upon discharge to home.
-Outpatient dose of losartan 100 mg daily has been continued
-Patient asking for flu shot prior to discharge, ordered by me 03/11/2025
-Patient is stable for discharge to home on 03/11/2025
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
Subjective
Date of Service: March 11, 2025
Feels well, she wants to have her flu shot before she goes home
Objective
Labs:
03/10/25 05:42
03/11/25 02:27
Labs
Hgb 12.4 g/dL (12.0-16.0) 03/10/25 05:42
Hct 35.9 % (37.0-47.0) L 03/10/25 05:42
Plt Count 200 10^3/uL (130-400) 03/10/25 05:42
Sodium 141 mmol/L (135-145) 03/11/25 02:27
Potassium 3.8 mmol/L (3.5-5.1) 03/11/25 02:27
BUN 27 mg/dl (7-17) H 03/11/25 02:27
Creatinine 0.9 mg/dL (0.6-1.0) 03/11/25 02:27
Glucose 97 mg/dl (70-99) 03/11/25 02:27
Vital Signs and I&O:
Vital Signs
Temp Pulse Resp BP Pulse Ox
97.9 F 48 16 119/81 97
03/11/25 08:08 03/11/25 08:09 03/11/25 08:08 03/11/25 08:09 03/11/25 08:08
Vital Signs
Temp Pulse Resp BP Pulse Ox
97.9 F 48 16 119/81 97
03/11/25 08:08 03/11/25 08:09 03/11/25 08:08 03/11/25 08:09 03/11/25 08:08
Intake & Output
03/09/25 03/10/25 03/11/25 03/12/25
06:59 06:59 06:59 06:59
Intake Total 240 / 240 1790 / 1790 960 / 960
Output Total 1100 / 1100 350 / 350
Balance 240 / 240 690 / 690 610 / 610
Physical Exam
Physical Exam
GEN: NAD, AO x 3
LUNGS: RA. No wheeze
CV: SR on telemetry
--- NOTE | 2025-03-11 12:36 | W.DS.TRANS ---
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
-
Discharge Instructions:
Discharge Diagnosis/Procedures Tikosyn loading for paroxysmal to persistent
atrial fibrillation
Diet Low Sodium
Activity No restrictions
Driving Restrictions As prior to admission
Bathing Restrictions None
Instructions:
Stand-Alone Forms:
Changes to Home Medications: Yes
Discharge Medications:
DC Medications w/original date entered in [employer]
losartan 100 mg tablet (Cozaar) 100 mg PO DAILY htn 03/04/15
felodipine 10 mg tablet,extended release 24 hr 10 mg PO DAILY htn 01/10/22
levothyroxine 137 mcg tablet 137 mcg PO DAILY Thyroid 01/10/22
metoprolol succinate 25 mg tablet,extended release 24 hr (Toprol XL) 12.5 mg PO BID bp 01/10/22
apixaban 5 mg tablet (Eliquis) 5 mg PO BID blood thinner 09/06/23
furosemide 40 mg tablet 20 mg PO .4TIMESWEEK water pill 09/06/23
calcium carb-ergocalciferol (vit D2) 600 mg calcium-200 unit tablet 1 tab PO DAILY 11/03/24
levothyroxine 137 mcg tablet 68.5 mcg PO DAILY 03/09/25
dofetilide 250 mcg capsule (Tikosyn) 250 mcg PO BID 30 days #60 caps 03/10/25
Home Medication Changes
New to Tikosyn
Pending Results: No
--- NOTE | 2025-03-11 13:09 | CM ---
Reviewed chart. Telephone call to [facility] to confirm that they have 250 mcg in stock. [facility] confirms they have it in stock. Met with Mrs. Lewis to review discharge plans. She states she is feeling well and maybe able to go home
soon. Prior to admission she resides with her spouse in a one story home with a basement laundry room. She has three steps to enter the home. Prior she was independent with ambulation and adls. She does not have any DME in the home. She has a
prescription plan with [facility] and uses [facility]. Telephone call to [facility] ([phone]) to check on co-pay for Dofetilide 250 mcg q 12. The thirty day supply is $7.00 a month and the ninety day supply is $5.00. Telephone call to [facility] to see if they have Dofetilide 250 mcg in stock. [facility] states they do not have it in stock. They would have to order. Will need a three day a script to [facility] for a three day supply to go home with her. Medical work-up in
progress. The discharge plan is to return home with her spouse when medically stable.
--- NOTE | 2025-03-11 14:42 | W.PN.UPDATE ---
Update Note
Progress Note Update
ECG 2 hours after 5th dose of Tikosyn this morning was reviewed by me and QTc has prolonged to 522 ms. Reviewed with EP. Discharge has been canceled. Tikosyn dose decreased to 125 mcg every 12 hours. Patient updated in the room and is
disappointed, but is agreeable to ongoing admission overnight with monitoring of QTc on lower dose of Tikosyn. If QTc stable morning the patient can be discharged to home.
[2025-03-11] MEDS: TIKOSYN 125 MCG PO (20:07)
--- NOTE | 2025-03-11 22:39 | PTCARENOTE ---
Patient received at change of shift out of bed to the chair. SB/SR on telemetry with first degree AVB and prolonged QT. Denies pain. Denies feeling lightheaded or dizzy. Discussed reduced Tikosyn dose and EKG 2 hours following administration. Plan
of care discussed. Call ivan within reach. Care ongoing.
[2025-03-12 03:07] VITALS: BP 121/68
[2025-03-12 04:21] LABS: Blood Urea Nitrogen 23 mg/dl (7-17); Calcium 9.1 mg/dl (8.4-10.2); Carbon Dioxide 28 mmol/L (22-30); Chloride 107 mmol/L (98-107); Estimated Creatinine Clearance 43 ml/min; Glucose 87 mg/dl (70-99); Magnesium 2.2 mg/dl (1.6-2.3); Potassium 3.9 mmol/L (3.5-5.1); Sodium 140 mmol/L (135-145); eGFR > 60.00
[2025-03-12] MEDS: SYNTHROID 137 MCG PO (05:52)
[2025-03-12 05:53] VITALS: BMI 27.0
--- NOTE | 2025-03-12 07:52 | W.PN.CARDCBS ---
Addendum entered and electronically signed by Manuelito Simental MD 03/12/25 10:07:
I saw and examined the patient.
The Foam Rubber Curer's note was reviewed and I agree with the note.
Comment:
GEN: No distress, awake, Ox3
HEENT: supple, anicteric, mmm
LUNGS: CTA, no wheezes/rales
CV: Reg, S1/S2, 1/6 syst LSB, no gallop
ABD: soft, BS+, NT/ND
EXT: No edema
NEURO: Gross non-focal
SKIN: No rash
Plan:
Remains in sinus rhythm on Tikosyn 125 mcg daily.
Check repeat EKG. If QTc stable okay for discharge.
Continue Eliquis and metoprolol.
Original Note:
Today's Communication / Plan
-
Discharge to home today if ECG is stable following 7th dose of Tikosyn this morning
Impression / Plan
-
PCP: Dr. Harriet Haro
Cardiology: Dr. Kumar Buck
Impression:
Direct admission for Tikosyn load 03/09/2025
Initial loading dose of 250 mcg every 12 hours based on CrCl
Dose lowered to 125 mcg every 12 hours due to QTc prolongation at the 522 ms following 5th dose of Tikosyn
Persistent A-fib
s/p PVI 11/19/2023
Previous amiodarone therapy stopped following successful ablation 11/19/2023
s/p Affera multipolar mapping/PVI ablation 08/28/24
Chronic Eliquis OAC
Hodgkin's lymphoma
HILDA on CPAP
Hypothyroidism
Echo 12/27/2024: Normal LV size and function, EF 55 to 60%, moderately dilated LA/RA with moderate MR and trivial pericardial effusion
Plan:
-Patient was seen in the office on 02/06/2025 and referred for Tikosyn load for persistent A-fib. Patient has a history of paroxysmal to persistent A-fib with previous PVI in 2023 and most recently on 08/28/2024. Leading up to her PVI in 2023 patient
was taking amiodarone and this was stopped following ablation. Patient recurred with A-fib prompting repeat ablation earlier this year. Patient recurred with A-fib and this was reviewed at her 02/06/2025 office visit with the option of Tikosyn
loading. Patient was agreeable. Patient denies any missed doses of Eliquis. No chest pain or SOB.
-Patient was initially loaded with Tikosyn 250 mcg every 12 hours based on CrCl of 49 and QTc was stable until a prolonged to 522 ms following the 5th dose of Tikosyn that was given Sunday. ECG reviewed by EP and Tikosyn dose decreased
to 125 mcg every 12 hours starting on Sunday night. ECG Sunday night following Tikosyn 125 mcg showed ongoing SR and QTc improved to 458 ms.
-Patient is scheduled to receive her overall 7th dose of Tikosyn on morning and if QTc is stable she will be discharged to home on Tikosyn 125 mcg every 12 hours
-Patient spontaneously converted to SR following 1st dose of Tikosyn 250 mcg on Sunday morning
-Outpatient dose of Toprol-XL 12.5 mg BID has been continued
-Patient will continue with her usual dose of Eliquis 5 mg BID (age 79, Cre 1.0, wt 70.2 kg) and there have been no missed doses of Eliquis
-Patient takes Lasix 20 mg about 4 times a week for volume management, she took a dose 03/08/25 and received another dose on 03/10/2025. Renal function, electrolytes and ECG stable with Tikosyn loading and Lasix dosing as an inpatient, so Lasix
will be continued upon discharge to home.
-Outpatient dose of losartan 100 mg daily has been continued
-Patient asking for flu shot prior to discharge, ordered by sd 03/11/2025
-Patient is stable for discharge to home on 03/12/2025
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
Subjective
Date of Service: March 12, 2025
Feels well, hoping to go home later today
Objective
Labs:
03/10/25 05:42
03/12/25 03:12
Labs
Hgb 12.4 g/dL (12.0-16.0) 03/10/25 05:42
Hct 35.9 % (37.0-47.0) L 03/10/25 05:42
Plt Count 200 10^3/uL (130-400) 03/10/25 05:42
Sodium 140 mmol/L (135-145) 03/12/25 03:12
Potassium 3.9 mmol/L (3.5-5.1) 03/12/25 03:12
BUN 23 mg/dl (7-17) H 03/12/25 03:12
Creatinine 0.9 mg/dL (0.6-1.0) 03/12/25 03:12
Glucose 87 mg/dl (70-99) 03/12/25 03:12
Vital Signs and I&O:
Vital Signs
Temp Pulse Resp BP Pulse Ox
97.9 F 49 14 121/68 96
03/12/25 03:08 03/12/25 07:00 03/12/25 03:08 03/12/25 03:07 03/12/25 03:08
Vital Signs
Temp Pulse Resp BP Pulse Ox
97.9 F 49 14 121/68 96
03/12/25 03:08 03/12/25 07:00 03/12/25 03:08 03/12/25 03:07 03/12/25 03:08
Intake & Output
03/10/25 03/11/25 03/12/25 03/13/25
06:59 06:59 06:59 06:59
Intake Total 240 / 240 1790 / 1790 960 / 960
Output Total 1100 / 1100 650 / 650
Balance 240 / 240 690 / 690 310 / 310
Physical Exam
Physical Exam
GEN: NAD, AO x 3
LUNGS: RA. No wheeze
CV: SR on telemetry
--- NOTE | 2025-03-12 08:00 | PTCARENOTE ---
Assumed care of pt from prev nsg shift; Pt AAOx3 w/no c/o CP or SOB. Pt's VSS w/HR in the 50's-60's & BP 132/79 this AM. Pt is SB/SR w/BBB on telemetry monitoring. QTc improved since yesterday. Discussed plan of care w/pt. Pt w/call ivan within
reach. Plan of care ongoing.
[2025-03-12 08:05] VITALS: BP 132/79
[2025-03-12] MEDS: ELIQUIS 5 MG PO (08:06)
[2025-03-12] MEDS: TOPROL XL 12.5 MG PO (08:06)
[2025-03-12] MEDS: TIKOSYN 125 MCG PO (08:06)
[2025-03-12] MEDS: COZAAR 100 MG PO (08:07)
[2025-03-12] MEDS: NORVASC 10 MG PO (08:07)
[2025-03-12] MEDS: LASIX 20 MG PO (08:07)
[2025-03-12] MEDS: TYLENOL 650 MG PO (09:49)
--- NOTE | 2025-03-12 10:05 | W.DS.TRANS ---
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
-
Discharge Instructions:
Discharge Diagnosis/Procedures Tikosyn loading for paroxysmal to persistent
atrial fibrillation
Diet Low Sodium
Activity No restrictions
Driving Restrictions As prior to admission
Bathing Restrictions None
Instructions:
Stand-Alone Forms:
Changes to Home Medications: Yes
Discharge Medications:
DC Medications w/original date entered in [employer]
losartan 100 mg tablet (Cozaar) 100 mg PO DAILY htn 03/04/15
felodipine 10 mg tablet,extended release 24 hr 10 mg PO DAILY htn 01/10/22
levothyroxine 137 mcg tablet 137 mcg PO DAILY Thyroid 01/10/22
metoprolol succinate 25 mg tablet,extended release 24 hr (Toprol XL) 12.5 mg PO BID bp 01/10/22
apixaban 5 mg tablet (Eliquis) 5 mg PO BID blood thinner 09/06/23
furosemide 40 mg tablet 20 mg PO .4TIMESWEEK water pill 09/06/23
calcium carb-ergocalciferol (vit D2) 600 mg calcium-200 unit tablet 1 tab PO DAILY 11/03/24
levothyroxine 137 mcg tablet 68.5 mcg PO DAILY 03/09/25
dofetilide 125 mcg capsule (Tikosyn) 125 mcg PO Q12H Arrhythmia #60 caps 03/12/25
Home Medication Changes
New to Tikosyn
Pending Results: No
--- NOTE | 2025-03-12 10:08 | CM ---
Reviewed chart. Met with Mrs. Lewis to review discharge plans. Telephone call to [facility] to check if they have Dofetilide 125 mcg in stock. [facility] states they have it in stock. Updated Mrs. Lewis regarding medications. She will
need a three day supply of Dofetilide from . Pharmacy to take home with her. Prior to admission she resides with her spouse in a one story home with a basement laundry room. She has three steps to enter the home. Prior she was independent with
ambulation and adls. She does not have any DME in the home. She has a prescription plan with [facility] and uses [facility]. Telephone call to [facility] ([phone]) to check on co-pay for Dofetilide 250 mcg q 12. The thirty day supply is $7.00
a month and the ninety day supply is $5.00. Telephone call to [facility] to see if they have Dofetilide 250 mcg in stock. [facility] states they do not have it in stock. They would have to order. Will need a three day a script to [facility]
for a three day supply to go home with her. Medical work-up in progress. The discharge plan is to return home with her spouse when medically stable.
--- NOTE | 2025-03-12 10:10 | W.PN.UPDATE ---
Update Note
Progress Note Update
ECG reviewed by me and QTc stable at 449 ms, patient stable for discharge to home. Flu shot was already ordered yesterday and will be given today just prior to discharge. Follow-up arranged.
[2025-03-12] MEDS: FLUZONE HIGH-DOSE 2025-26 0.5 ML IM (10:25)
[2025-03-12 11:44] VITALS: BP 119/77
--- NOTE | 2025-03-12 14:10 | PTCARENOTE ---
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 Discussed D/C instructions w/pt. Pt given 6 dose prescription of Tikosyn from our pharmacy as ordered. Pt left w/personal belongings incl cell phone, tablet, & chargers. Pt escorted out via WC by staff.
== END 2025-03-12 14:10 | disposition home or self-care (01) | DRG 309 ==
LOC: IVU 09:30
PROVIDERS: Internal Medicine Cardiovascular Disease; Physician Assistant Medical; ADMITTING PHYSICIAN Nuclear Medicine Nuclear Cardiology; FAMILY PHYSICIAN Internal Medicine Cardiovascular Disease
PROC: 3E0DXRZ Introduction of Antiarrhythmic into Mouth and Pharynx, External Approach (ICD-10-PCS; 2025-03-09)
PROC: 5A09357 Assistance with Respiratory Ventilation, Less than 24 Consecutive Hours, Continuous Positive Airway Pressure (ICD-10-PCS; 2025-03-11)
PROC: 3E02340 Introduction of Influenza Vaccine into Muscle, Percutaneous Approach (ICD-10-PCS; 2025-03-12)
DX: I48.19 Other persistent atrial fibrillation (principal); C81.90 Hodgkin lymphoma, unspecified, unspecified site; G47.33 Obstructive sleep apnea (adult) (pediatric); E03.9 Hypothyroidism, unspecified; Z23 Encounter for immunization; Z79.01 Long term (current) use of anticoagulants; Z88.1 Allergy status to other antibiotic agents; Z88.0 Allergy status to penicillin; Z79.890 Hormone replacement therapy; Z79.899 Other long term (current) drug therapy
CPT/HCPCS: 80048; 80053; 83735; 85027; 90662; 93005; G0008